=== PATIENT | female | born 1960 ===

== ENCOUNTER → 2023-11-30 14:39 | Outpatient (REF) | payer OTHER, SELFPAY ==
[2023-11-30 16:17] LABS: Body Fluid Mononuclear 17.9 %; Body Fluid Polymorphonuclear 82.1 %
[2023-11-30 16:36] LABS: Body Fluid Second Tech LD; Body Fluid WBC 42930 /CUMM
== END ==
LOC: REG 14:39
PROVIDERS: ATTENDING PHYSICIAN Student in an Organized Health Care Education/Training Program; FAMILY PHYSICIAN Family Medicine
DX: M25.462 Effusion, left knee (principal)
CPT/HCPCS: 36415; 89051; 89060